=== PATIENT | male | born 1985 | race Caucasian/White ===

== ENCOUNTER 2016-12-27 18:31 | Emergency (ER) | payer BC ==
[~2016-12-27] VITALS: Ht 170.2 cm; Wt 86.5 kg
[~2016-12-27 18:31] MED LIST: Motrin PO; NAPROSYN500 MG PO; Roxicet,Percocet 5/3 PO; SENOKOT S,PE1 TABLET PO; Tylenol Extra Streng PO
[2016-12-27 20:42] LABS: EOSINOPHIL (%) 2.4 % (0-5); EOSINOPHIL COUNT 0.2 K/uL (0-0.3); HEMATOCRIT 43.6 % (38.0-50.0); IMMATURE GRANULOCYTE (%) 0.4 % (0.0-0.7); INSTRUMENT ABS NEUTROPHIL CT 6.4 K/uL; LYMPHOCYTE COUNT 2.1 K/uL (1.0-2.8); MCHC 33.9 G/DL (30.0-36.0); MCV 82.6 FL (86-99); MEAN PLAT.VOLUME 9.3 uM^3 (9.0-12.4); MONOCYTE (%) 7.4 % (3-12); MONOCYTE COUNT 0.7 K/uL (0-0.8); NEUTROPHIL (%) 67.2 % (45-76); NEUTROPHIL COUNT 6.4 K/uL (1.8-6.4); PLATELET COUNT 289 K/uL (156-360); RBC DIS.WIDTH-CV 12.9 % (11.8-14.6); RBC DIS.WIDTH-SD 38.7 % (39-53); RED BLOOD COUNT 5.28 M/uL (4.00-5.50); WHITE BLOOD COUNT 9.6 K/uL (4.1-10.2)
[2016-12-27 20:53] LABS: CHLORIDE 108 mEq/L (99-109); POTASSIUM 4.3 mEq/L (3.7-5.4); SODIUM 140 mEq/L (136-147)
[2016-12-27 20:55] LABS: GLUCOSE 93 mg/dL (70-99)
[2016-12-27 20:56] LABS: ANION GAP 9 MEQ/L (2-14)
[2016-12-27 20:58] LABS: GFR ESTIMATE (CALCULATED) > 59 mL/min/
[2016-12-27 20:59] LABS: UREA NITROGEN (BUN) 14 mg/dL (9-23)
[2016-12-27 21:53] LABS: INFLUENZA A VIRAL ANTIGEN NEGATIVE; INFLUENZA B VIRAL ANTIGEN NEGATIVE
[2016-12-27] MEDS ORDERED: TYLENOL WITH C1 EACH PO (22:38)
[2016-12-27] MEDS ORDERED: MOTRIN600 MG PO (22:39)
[2016-12-27] MEDS ORDERED: PROVENTIL HFA6.7 GM IH (22:40)
[2016-12-27 22:53] VITALS: BP 102/82
== END 2016-12-27 22:55 | disposition home or self-care (01) ==
LOC: EME 18:31
PROVIDERS: Emergency Medicine
DX: J06.9 Acute upper respiratory infection, unspecified (principal); J20.9 Acute bronchitis, unspecified
CPT/HCPCS: 71020; 80048; 85025; 87502; 93005; 94640; 99281; 99284